=== PATIENT | male | born 1975 | race Caucasian/White ===

== ENCOUNTER 2019-05-15 03:14 | Emergency (ER) | payer OTHER ==
[~2019-05-15] VITALS: Ht 182.9 cm; Wt 96.2 kg
--- NOTE | 2019-05-15 03:15 | NUR ---
PT AAOX4. AMBUALTORY. C/O SI WITH PLAN TO RUN INTO TRAFFIC. DENIES HI. PLACED IN GOWN.
--- NOTE | 2019-05-15 03:16 | NUR ---
PT BELONINGS PLACED IN LOCKERS. VSS. NO ACUTE DISTRESS NOTED.
--- NOTE | 2019-05-15 03:20 | NUR ---
CONTEMPORARY OR MODERN DANCER AT BEDSIDE FOR LAB
--- NOTE | 2019-05-15 03:21 | NUR ---
URINE COLLECTED AND SENT TO LAB
[2019-05-15] MEDS ORDERED: OLANZAPINE 5 MG TABLET ONE (03:31)
[2019-05-15] MEDS: OLANZAPINE 5 MG TABLET PO ONE (03:33)
[2019-05-15 03:44] LABS: BASOPHILS # (AUTO) 0.1 /CMM (0.0-0.2); BASOPHILS % (AUTO) 0.5 % (0.0-2.0); HEMOGLOBIN 14.6 g/dL (13.5-17.5); LYMPHOCYTES % (AUTO) 7.7 % (20.0-44.0); MEAN CORPUSCULAR VOLUME 85 fL (80-96)
[2019-05-15 03:49] LABS: EOSINOPHILS % (AUTO) 0.2 % (0.0-6.0); HEMATOCRIT 44 % (39-51); LYMPHOCYTES # (AUTO) 1.4 /CMM (0.8-4.8); MEAN CORPUSCULAR HGB CONC 34 g/dl (31.0-36.0); MONOCYTES % (AUTO) 5.8 % (2.0-12.0); NEUTROPHILS # (AUTO) 15.2 /CMM (1.8-8.9); NEUTROPHILS % (AUTO) 85.8 % (43.0-81.0); PLATELET COUNT (AUTO) 465 /CMM (150-450); RED BLOOD CELL COUNT(AUTO) 5.14 MIL/uL (4.5-6.0); WHITE BLOOD COUNT (AUTO) 17.7 K/uL (4.3-11.0)
[2019-05-15 03:50] LABS: APPEARANCE,URINE Clear (CLEAR); BILIRUBIN,URINE SMALL (NEGATIVE); BLOOD, URINE Small Ery/uL (NEGATIVE); COLOR,URINE Yellow (YELLOW); KETONES,URINE 40 (NEGATIVE); LEUKOCYTE ESTERASE ,URINE Negative (NEGATIVE); NITRITE, URINE Negative (NEGATIVE); PROTEIN,URINE 30 mg/dl (NEGATIVE); UGLUCOSE Negative (NEGATIVE); UROBILINOGEN,URINE 0.2 EU/dL (0.2)
[2019-05-15 03:57] LABS: CALCIUM, SERUM 9.1 mg/dL (8.5-10.1); POTASSIUM 3.7 mmol/L (3.5-5.1)
[2019-05-15 04:02] LABS: ALBUMIN 4.5 g/dL (3.4-5.0); BILIRUBIN,DIRECT 0.2 mg/dL (0.0-0.2); BILIRUBIN,TOTAL 0.7 mg/dL (0.2-1.0); TOTAL PROTEIN, SERUM 8.5 g/dL (6.4-8.2)
[2019-05-15 04:05] LABS: SALICYLATE 1.7 mg/dL (2.8-20.0)
[2019-05-15 04:13] LABS: BACTERIA,URINE Few /HPF (None Seen); MUCUS,URINE Moderate /LPF (None Seen); SQUAMOUS EPITHELIAL CELL,UR Rare /HPF (None Seen)
--- NOTE | 2019-05-15 06:16 | NUR ---
PT ASLEEP, NO ACUTE DISTRESS NOTED, RESP EVEN AND UNLABORED. CALL LIGHT WITHIN REACH. WILL CONTINUE TO MONITOR PT CLOSELY.
--- NOTE | 2019-05-15 08:26 | NUR ---
BOILER MECHANIC contacted [facility] intake inquiring if they received clinical referral packet for pt. Per Lan at [facility] intake, they had not. BOILER MECHANIC faxed clinical referral packet to . BOILER MECHANIC updated SITA Pack in ED.
--- NOTE | 2019-05-15 13:28 | NUR ---
CALL FROM [facility], ACCEPTED BY DR DÍAZ TO UNIT 1 ROOM 105-A, REPORT TO BE CALLED TO [phone]
--- NOTE | 2019-05-15 13:42 | NUR ---
TRANSPORT CALLED ETA [phone]
--- NOTE | 2019-05-15 13:53 | NUR ---
REPORT GIVEN TO GOKUL BUCKNER FOR DEE
[2019-05-15] MEDS ORDERED: CEPHALEXIN MONOHYDRATE 500 MG CAPSULE PO ONE (16:55)
--- NOTE | 2019-05-15 17:05 | NUR ---
pt transportd via private ambulance to [facility]
[2019-05-15 17:10] VITALS: BP 118/69
[2019-05-15] MEDS: CEPHALEXIN MONOHYDRATE 500 MG CAPSULE PO SCH (17:25)
== END 2019-05-15 17:26 ==
LOC: ER 03:18
DX: R45.851 Suicidal ideations (principal); F20.9 Schizophrenia, unspecified; F17.200 Nicotine dependence, unspecified, uncomplicated; Z59.0 Homelessness
CPT/HCPCS: 36415; 80048; 80076; 80305; 80307; 80329; 81001; 85025; 87086; 99285; G0480; 81000-TC

== ENCOUNTER 2019-06-22 23:53 | Emergency (ER) | payer OTHER ==
[~2019-06-22] VITALS: Ht 190.5 cm; Wt 90.7 kg
--- NOTE | 2019-06-23 | NUR ---
SAFETY PRECAUTIONS IMPLEMENTED. PT WANDED
--- NOTE | 2019-06-23 00:08 | NUR ---
BIBS. TO ER BED 14. AAOX4. NOT IN RESP DISTRESS. AMBULATORY. CAME IN FOR SUICIDAL IDEATION WITH PLAN TO RUN INTO TRAFFIC. DENIES HI. +AUDITORY HALLUCINATION - TELLING HIM TO KILL HIMSELF. PT IS STRIPPED OFF CLOTHING, GOWNED, BELONINGS KEPT IN LOCKER AND 1:1 SITTER AT BEDSIDE. URINE COLLECTED. WAS AT BEDSIDE FOR EVAL.
[2019-06-23 01:29] LABS: BASOPHILS # (AUTO) 0.1 /CMM (0.0-0.2); EOSINOPHILS % (AUTO) 6.5 % (0.0-6.0); HEMATOCRIT 39 % (39-51); HEMOGLOBIN 12.9 g/dL (13.5-17.5); LYMPHOCYTES % (AUTO) 40.6 % (20.0-44.0); MEAN CORPUSCULAR HGB CONC 33 g/dl (31.0-36.0); MEAN CORPUSCULAR VOLUME 88 fL (80-96); MONOCYTES # (AUTO) 0.5 /CMM (0.1-1.30); MONOCYTES % (AUTO) 6.8 % (2.0-12.0); NEUTROPHILS # (AUTO) 3.4 /CMM (1.8-8.9); NEUTROPHILS % (AUTO) 45.1 % (43.0-81.0); PLATELET COUNT (AUTO) 308 /CMM (150-450); RED BLOOD CELL COUNT(AUTO) 4.46 MIL/uL (4.5-6.0); WHITE BLOOD COUNT (AUTO) 7.5 K/uL (4.3-11.0)
[2019-06-23 01:32] LABS: APPEARANCE,URINE Clear (CLEAR); BILIRUBIN,URINE SMALL (NEGATIVE); BLOOD, URINE Negative Ery/uL (NEGATIVE); COLOR,URINE Yellow (YELLOW); KETONES,URINE Negative (NEGATIVE); LEUKOCYTE ESTERASE ,URINE Negative (NEGATIVE); NITRITE, URINE Negative (NEGATIVE); PH,URINE 5.5 (5.0-8.0); PROTEIN,URINE Negative (NEGATIVE); UGLUCOSE Negative (NEGATIVE)
[2019-06-23 01:37] LABS: CREATININE 0.9 mg/dL (0.6-1.3); POTASSIUM 3.7 mmol/L (3.5-5.1)
[2019-06-23 01:42] LABS: ALBUMIN 3.6 g/dL (3.4-5.0); BILIRUBIN,DIRECT 0.2 mg/dL (0.0-0.2); BILIRUBIN,TOTAL 0.4 mg/dL (0.2-1.0); TOTAL PROTEIN, SERUM 6.7 g/dL (6.4-8.2)
[2019-06-23 01:43] LABS: SALICYLATE 0.9 mg/dL (2.8-20.0)
--- NOTE | 2019-06-23 02:27 | NUR ---
PT STILL ON CONSTANT OBSERVATION W/ SITTER AT BEDSIDE FOR SAFETY
--- NOTE | 2019-06-23 02:29 | NUR ---
Patient is resting comfortably in bed with eyes closed. Easily aroused. VSS
--- NOTE | 2019-06-23 03:30 | NUR ---
CLINICAL INFORMATION FAXED TO [facility]
--- NOTE | 2019-06-23 04:24 | NUR ---
TRANSFER INFORMATION: PT ACCEPTED TO [facility] ACCEPTING MD: DR. DÍAZ NUMBER FOR REPORT: [phone] PT WILL BE GOING TO UN[facility] ETA [id number]
--- NOTE | 2019-06-23 06:03 | NUR ---
REPORT GIVEN [facility]DR[facility]
--- NOTE | 2019-06-23 06:12 | NUR ---
PT AWAKE, STATES HE IS FEELING ANXIOUS. ER MD AWARE. WILL MEDICATE PT PER MD ORDER
[2019-06-23] MEDS ORDERED: LORAZEPAM 1 MG TABLET ONE (06:14)
[2019-06-23] MEDS ORDERED: LORAZEPAM 1 MG TABLET PO ONE (06:30)
--- NOTE | 2019-06-23 06:30 | NUR ---
PT APPEARS TO BE RESTING COMFORTABLY W/ SITTER AT BEDSIDE FOR SAFETY. NO ACUTE DISTRESS NOTED. WILL CONTINUE TO MONITOR
[2019-06-23 06:57] VITALS: BP 129/86
--- NOTE | 2019-06-23 06:58 | NUR ---
REPORT GIVEN TO [facility] FOR TRANSPORTATION DEE
== END 2019-06-23 06:58 | disposition short-term general hospital (02) ==
LOC: ER 23:55
DX: R45.851 Suicidal ideations (principal); F29 Unspecified psychosis not due to a substance or known physiological condition; F20.9 Schizophrenia, unspecified
CPT/HCPCS: 36415; 80048; 80076; 80305; 80307; 80329; 81001; 85025; 99285; G0480; 81000-TC